=== PATIENT | male | born 1985 | race African-American/Black ===

== ENCOUNTER 2020-03-22 15:44 | Emergency (ER) | payer MEDICAID ==
[~2020-03-22] VITALS: Ht 165.1 cm; Wt 73.0 kg
[2020-03-22] MEDS ORDERED: IBUPROFEN 800MG TABLET PO ONE (16:45)
[2020-03-22 17:07] VITALS: BP 142/86
== END 2020-03-22 18:24 | disposition home or self-care (01) ==
LOC: ER 15:44
DX: S39.012A Strain of muscle, fascia and tendon of lower back, initial encounter (principal); S16.1XXA Strain of muscle, fascia and tendon at neck level, initial encounter; V49.88XA Car occupant (driver) (passenger) injured in other specified transport accidents, initial encounter; Y93.89 Activity, other specified; Y92.89 Other specified places as the place of occurrence of the external cause; Y99.8 Other external cause status
CPT/HCPCS: 99283